=== PATIENT | male | born 2000 | race Caucasian/White ===

== ENCOUNTER → 2021-07-14 | Outpatient (CLI) | LOC: M LABSMTC 08:32 | PROVIDERS: ATTEND Anesthesiology | DX: Z01.812 Encounter for preprocedural laboratory examination (principal); Z20.822 Contact with and (suspected) exposure to COVID-19 ==

== ENCOUNTER 2021-07-18 07:52 | Day surgery (SDC) | payer OTHER ==
[~2021-07-18] VITALS: Ht 188 cm; Wt 98.9 kg
[~2021-07-18 07:52] MED LIST: EMLA CREAM 5GM TUBE (LIDOCAINE/PRILOCAINE) TOP PRN; LR 1,000 ML IV ONE
[2021-07-18] MEDS ORDERED: D3 S20002 PO (09:14)
[2021-07-18] MEDS ORDERED: propofoL 200 MG/20 ML VIAL As Ordered ONE (09:17)
[2021-07-18] MEDS ORDERED: fentaNYL 100 MCG/2 ML INJECTION (J3010) As Ordered ONE ×2 (09:17→10:28)
[2021-07-18] MEDS ORDERED: MIDAZOLAM INJ 2MG/2ML VIAL (J2250 PER 1MG) As Ordered ONE (09:23)
[2021-07-18] MEDS ORDERED: LIDOCAINE W/EPINEPHRINE 1% 20ML VIAL As Ordered ONE (09:23)
[2021-07-18] MEDS ORDERED: LIDOCAINE 2% INJ 100 MG/5 ML SYRINGE As Ordered ONE (09:24)
[2021-07-18] MEDS ORDERED: ROCURONIUM BROMIDE 50 MG/5 ML VIAL As Ordered ONE (09:24)
[2021-07-18] MEDS ORDERED: LIDOCAINE 2% 100MG/5ML SDV (FOR ANES.) As Ordered ONE (09:24)
[2021-07-18] MEDS ORDERED: KETOROLAC 60MG 2ML VIAL As Ordered ONE (09:42)
[2021-07-18] MEDS ORDERED: ONDANSETRON 4MG/2ML VIAL As Ordered ONE (09:42)
[2021-07-18] MEDS ORDERED: dexameTHASONE 4 MG/ML 1ML VIAL (J1100 PER 1MG) As Ordered ONE (09:43)
[2021-07-18] MEDS ORDERED: LR 1,000 ML IV SCH ×2 (11:10)
[2021-07-18] MEDS ORDERED: fentaNYL 100 MCG/2 ML INJECTION (J3010) IV PRN (11:10)
[2021-07-18] MEDS ORDERED: ONDANSETRON 4MG/2ML VIAL IV PRN (11:10)
[2021-07-18 11:20] VITALS: BP 133/74
--- NOTE | 2021-07-19 18:55 | RO ---
OPERATIVE NOTE DATE OF OPERATION: 07/18/2021 PREOPERATIVE DIAGNOSIS: Impacted teeth. POSTOPERATIVE DIAGNOSIS: Impacted teeth. PROCEDURE: Extraction of teeth #1, 2, 15, 16, 17 and 32. SURGEON: Leonid Shaw DMD ESTIMATED BLOOD LOSS: 10 mL ANESTHESIA: General. SPECIMEN: Teeth. COMPLICATIONS: None. DESCRIPTION OF PROCEDURE Surgical extraction of teeth #1,2,15,16,17,32 performed. 3-0 gut placed. Patient extubated when criteria was meet by anesthesia and transfer to recovery in stable condition [facility]
== END 2021-07-18 12:26 | disposition home or self-care (01) ==
LOC: M SDC 07:52 → EDUNIT# 11:45 → M SDC 12:26
PROVIDERS: ATTEND Dentist Oral and Maxillofacial Surgery
DX: K21.9 Gastro-esophageal reflux disease without esophagitis (principal); K01.1 Impacted teeth
CPT/HCPCS: 88300; D7210; D9223; J1100; J1885; J2250; J2405; J3010